=== PATIENT | female | born 1980 | race Caucasian/White ===

== ENCOUNTER → 2024-10-09 09:26 | Outpatient (REF) | payer OTHER, SELFPAY | LOC: HWWDC 09:26 | PROVIDERS: ATTENDING PHYSICIAN Obstetrics & Gynecology; FAMILY PHYSICIAN Family Medicine | DX: Z12.31 Encounter for screening mammogram for malignant neoplasm of breast (principal) | CPT/HCPCS: 77063; 77067 ==

== ENCOUNTER → 2025-09-08 09:25 | Outpatient (REF) | payer OTHER, SELFPAY | LOC: WDC 09:25 | PROVIDERS: ATTENDING PHYSICIAN Internal Medicine | DX: L53.9 Erythematous condition, unspecified (principal); L29.9 Pruritus, unspecified | CPT/HCPCS: 76642; 77062; 77066 ==